=== PATIENT | male | born 1990 | race Caucasian/White ===

== ENCOUNTER 2018-04-18 12:55 | Emergency (ER) | payer OTHER, MEDICAID ==
--- NOTE | 2018-04-18 12:57 | EDPHY ---
H & P Time Seen by Provider: 04/18/18 12:58 Constitutional: Initial Vital Signs Temperature (C) 36.4 C 04/18/18 13:06 Heart Rate 86 04/18/18 13:06 Respiratory Rate 16 04/18/18 13:06 Blood Pressure 136/84 H 04/18/18 13:06 O2 Sat (%) 97 04/18/18 13:06 O2 Delivery Mode Room Air Allergies/Adverse Reactions: amoxicillin Allergy (Verified 04/18/18 13:06) Home Medications: Medication Instructions Recorded Famotidine [Pepcid 20 MG (OTC)] 20 mg PO DAILY #30 tab 04/18/18 Medical Decision Making ED Course/Re-evaluation: CHIEF COMPLAINT: Nausea after alcohol binge. HISTORY OF PRESENT ILLNESS: The patient is a 27 y/o male with a history of alcoholism arriving via EMS complaining of nausea after drinking whiskey all day yesterday. EMS gave the patient Zofran for his nausea. Patient drinks on a daily basis and obtains whatever alcohol is available. Patient denies any injuries denies loss of consciousness denies any recent trauma. Patient denies co-ingestion. Patient denies suicidal or homicidal behavior. No fever, headache, body aches, lightheadedness, chest pain, heart palpitations, shortness of breath, cough, abdominal pain, urinary or bowel complaints, numbness, paresthesias. REVIEW OF SYSTEMS: A comprehensive 10 system review of systems is otherwise negative aside from elements mentioned in the history of present illness and medical decision making. PHYSICAL EXAM: General Appearance: Alert, well hydrated, appropriate, and non-toxic appearing. Head: Atraumatic without scalp tenderness or obvious injury Eyes: Pupils equal, round, reactive to light and accommodation, EOMI, no trauma , no injection. Ears: Clear bilaterally, no perforation, normal landmarks Nose: Atraumatic, no rhinorrhea, clear. Throat: There is no erythema or exudates, no lesions, normal tonsils, mucus membranes moist. Neck: Supple, 2+ carotid upstroke, nontender, no lymphadenopathy. Respiratory: No retractions, no distress, no wheezes, and no accessory muscle use. Lungs are clear to auscultation bilaterally. Cardiovascular: Regular rate and rhythm, no murmurs, rubs, or gallops. Bilateral carotid, radial, dorsalis pedis, and posterior tibial pulses intact. Good capillary refill all extremities. Gastrointestinal: Abdomen is soft, nontender, non-distended, no masses, no rebound, no guarding, no peritoneal signs. Musculoskeletal: Normal active ROM of all extremities, atraumatic. Neurological: Alert, appropriate, and interactive. The patient has normal DTRs and non-focal cranial nerves, motor, sensory, and cerebellar exam. Skin: No rashes, good turgor, no nodules on palpation. PAST MEDICAL HISTORY: Alcoholism PAST SURGICAL HISTORY: Denies SOCIAL HISTORY: Lives in [place], single, employed DIAGNOSTICS/PROCEDURES/CRITICAL CARE TIME: Not indicated. DIFFERENTIAL DIAGNOSIS: The differential diagnosis for the patient's nausea and vomiting included but was not limited to gastroenteritis, alcoholic gastritis, appendicitis, and medication side effect. MEDICAL DECISION MAKING: The patient is a 27 y/o male with a history of alcoholism arriving via EMS presenting with nausea after drinking whiskey all day yesterday. He is nauseous and tearful on exam. Labs ordered; 2L IV NS, 4mg IV Zofran, and 20mg IV Pepcid administered. 1258: I met EMS upon arrival. 1410: Reassessed patient, we will place him on a PO trial. bench worker binding talked to the patient and does not want alcohol rehab. The patient does not have pancreatitis but does have alcoholic gastritis. I serially questioned the patient and the patient's story given initially has not changed. The patient still denies any trauma, any head injury, and any illicit drug use. At this point, the patient is walking the department freely and is clinically sober. I will prescribe him Pepcid and advise him to follow up with a child health associate. We're discharging the patient home in stable condition. - Data Points Laboratory Results: Laboratory Results 04/18/18 13:15 04/18/18 13:15 04/18/18 04/18/18 13:15 13:15 WBC REJ RBC REJ Hgb REJ Hct REJ MCV REJ MCH REJ MCHC REJ RDW REJ Plt Count REJ MPV REJ Neut % (Auto) REJ Lymph % (Auto) REJ Gaines % (Auto) REJ Eos % (Auto) REJ Baso % (Auto) REJ Nucleat RBC Rel Count REJ Absolute Neuts (auto) REJ Absolute Lymphs (auto) REJ Absolute Monos (auto) REJ Absolute Eos (auto) REJ Absolute Basos (auto) REJ Absolute Nucleated RBC REJ Immature Gran % REJ Immature Gran # REJ Sodium 140 mEq/L mEq/L (135-145) Potassium 4.5 mEq/L mEq/L (3.5-5.2) Chloride 108 mEq/L mEq/L (97-110) Carbon Dioxide 13 mEq/l L mEq/l (22-31) Anion Gap 19 mEq/L H mEq/L (6-14) BUN 20 mg/dL mg/dL (7-23) Creatinine 0.9 mg/dL mg/dL (0.7-1.3) Estimated GFR > 60 Glucose 49 mg/dL L mg/dL (70-100) Calcium 9.6 mg/dL mg/dL (8.5-10.4) Total Bilirubin 0.8 mg/dL mg/dL (0.1-1.4) Conjugated Bilirubin 0.5 mg/dL mg/dL (0.0-0.5) Unconjugated Bilirubin 0.3 mg/dL mg/dL (0.0-1.1) AST 39 IU/L IU/L (17-59) ALT 43 IU/L IU/L (21-72) Alkaline Phosphatase 108 IU/L IU/L (38-126) Total Protein 8.3 g/dL H g/dL (6.3-8.2) Albumin 5.3 g/dL H g/dL (3.5-5.0) Lipase 125 IU/L IU/L (23-300) Medications Given: Discontinued Medications Sodium Chloride (Ns) 1,000 mls @ 0 mls/hr IV EDNOW ONE; Wide Open PRN Reason: Protocol Stop: 04/18/18 13:01 Last Admin: 04/18/18 13:12 Dose: 1,000 mls Sodium Chloride (Ns) 1,000 mls @ 0 mls/hr IV EDNOW ONE; Wide Open PRN Reason: Protocol Stop: 04/18/18 13:01 Last Admin: 04/18/18 13:29 Dose: 1,000 mls Famotidine/Sodium Chloride (Pepcid 20 Mg (Premix)) 50 mls @ 200 mls/hr IV EDNOW ONE Stop: 04/18/18 13:14 Last Admin: 04/18/18 13:29 Dose: 50 mls Ondansetron HCl (Zofran) 4 mg IVP EDNOW ONE Stop: 04/18/18 13:01 Last Admin: 04/18/18 13:28 Dose: 4 mg Departure - Departure Disposition: Home, Routine, Self-Care Clinical Impression: Alcoholic gastritis Qualifiers: Chronicity: acute Gastritis bleeding: without bleeding Qualified Code(s): K29.20 - Alcoholic gastritis without bleeding Condition: Good Instructions: Gastritis (ED), Abuse of Alcohol (ED) Additional Instructions: 1. Please refrain from abusing alcohol. 2. Return to the emergency department immediately for fever, vomiting, confusion , headache, abdominal pain or other worsening of condition. 3. Followup with your primary care physician and a child health associate within 72 hours for reevaluation. 4. Take Pepcid as prescribed. Referrals: [facility] [Outside] - As per Instructions Janes Sandhu MD [Medical Doctor] - As per Instructions Prescriptions: Famotidine [Pepcid 20 MG (OTC)] 20 mg PO DAILY #30 tab Report Scribed for: Ion Hsieh Report Scribed by: Flori Cochran Date of Report: 04/18/18 Time of Report: 13:39
[2018-04-18] MEDS ORDERED: ONDANSETRON 4 MG/2 ML VIAL IVP ONE (13:00)
[2018-04-18] MEDS ORDERED: FAMOTIDINE 20 MG/NACL 50 ML IV ONE (13:00)
[2018-04-18] MEDS ORDERED: NS 1,000 ML IV ONE ×2 (13:00)
[2018-04-18 14:39] VITALS: BP 127/87
--- NOTE | 2018-04-18 15:25 | ASMTCAGE ---
CAGE Do you feel you ought to Answers: Yes cut down on your drinking or drug use? Do people annoy you by Answers: Yes criticizing your drinking or drug use? Do you feel guilty about Answers: Yes your drinking or drug use? Do you drink or use drugs Answers: No first thing in the morning ([employer])? Additional Comments Met with pt to discuss current drinking habits. Pt reports binge drinking every other week, approximately 1.5 pints of whiskey at a time. Resources offered. See CM note. Date Signed: 04/18/2018 03:25 PM Electronically Signed By:Awa Pearson RN
--- NOTE | 2018-04-18 15:48 | ASMTCMCOM ---
CM Note CM Note Notes: Reviewed chart. Pt presented to the Emergency Department for nausea after binge drinking last night. History includes alcoholism. Asked to see pt by [facility]. CAGE completed. 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 He reports a history of drinking, although he states he "has cut way back since September." Pt reports that he is only drinking once per week and binge drinking every other week. Pt states he feels he "needs to cut back and feels guilty about his drinking." Resources offered, including AA schedule. Pt declined stating "I am already getting help." Pt reports that he "prefers more modern methods than AA." Pt also reports that he sees a counselor at [facility] for his drinking every other week. Offered pt support group information, pt declined stating "I already know all about the groups." Pt declined need for additional help or resources at this time. Pt states his next counseling appt is next SaturdayApril 25. Encouraged pt to see his counselor sooner, if possible. Pt agreed to call on Saturday. CM available for any further issues or concerns. Date Signed: 04/18/2018 03:48 PM Electronically Signed By:Awa Pearson RN
== END 2018-04-18 14:39 | disposition home or self-care (01) ==
DX: K29.20 Alcoholic gastritis without bleeding (principal); F10.20 Alcohol dependence, uncomplicated
CPT/HCPCS: 96365; J2405